=== PATIENT | male | born 1950 | race Caucasian/White ===

== ENCOUNTER 2016-03-25 21:46 | Emergency (ER) | payer OTHER, MEDICARE ==
[~2016-03-25] VITALS: Ht 177.8 cm; Wt 95.8 kg
[~2016-03-25 21:46] MED LIST: ASPIRIN325 MG PO; NEXIUM40 MG PO; SYMBICORT60 INHALAT IH; VERAPAMIL HCL240 MG PO
[2016-03-25 22:14] LABS: ADD MIUA? NO; BILIRUBIN NEGATIVE; BLOOD NEGATIVE; COLOR STRAW ((YELLOW)); GLUCOSE (STRIP) NEGATIVE; KETONES NEGATIVE; LEUKOCYTES NEGATIVE; NITRITE NEGATIVE; PROTEIN (STRIP) NEGATIVE; SPECIFIC GRAVITY 1.006 (1.000-1.030); UCUL ADDED? NO; UROBILINOGEN 0.2 MG/DL (0.2-1.0)
[2016-03-25 22:17] LABS: HEMATOCRIT 44.7 % (38.0-50.0); MCH 31.6 PG (29.0-34.0); MCHC 34.7 G/DL (30.0-36.0); MEAN PLAT.VOLUME 10.1 uM^3 (9.0-12.4); PLATELET COUNT 243 K/uL (156-360); RBC DIS.WIDTH-CV 14.4 % (11.8-14.6); RED BLOOD COUNT 4.91 M/uL (4.00-5.50); WHITE BLOOD COUNT 11.8 K/uL (4.1-10.2)
[2016-03-25 22:25] LABS: CHLORIDE 106 mEq/L (99-109); SODIUM 140 mEq/L (136-147)
[2016-03-25 22:26] LABS: GLUCOSE 97 mg/dL (70-99)
[2016-03-25 22:28] LABS: ANION GAP 10 MEQ/L (2-14)
[2016-03-25 22:30] LABS: GFR ESTIMATE (CALCULATED) > 59 mL/min/
[2016-03-25 22:31] LABS: UREA NITROGEN (BUN) 17 mg/dL (9-23)
[2016-03-25] MEDS ORDERED: NAPROSYN500 MG PO (23:07)
[2016-03-25] MEDS ORDERED: FLEXERIL10 MG PO (23:07)
[2016-03-25 23:25] VITALS: BP 148/86
== END 2016-03-26 | disposition home or self-care (01) ==
LOC: EME 21:46
PROVIDERS: Physician Assistant
DX: M54.9 Dorsalgia, unspecified (principal); R10.9 Unspecified abdominal pain
CPT/HCPCS: 74176; 80048; 81003; 85027; 99281; 99284; J1885